=== PATIENT | male | born 1965 | race African-American/Black ===

== ENCOUNTER 2021-09-05 13:54 | Emergency (ER) | payer OTHER, SELFPAY ==
--- NOTE | ~2021-09-05 | XR_ITS ---
EXAMINATION: XR wrist RT min 3V DATE: 09/05/2021 14:18 INDICATION: Right wrist injury from a branch. TECHNIQUE: 4 views of right wrist were obtained. COMPARISON: Right hand radiographs 11/04/2018 FINDINGS: Bone alignment is normal. No fracture. There is mild osteoarthritis of first carpometacarpa l joint. IMPRESSION: 1. No fracture or radiopaque foreign body. Note that wood is not radiopaque. Reviewed, dictated and finalized at location A.
[2021-09-05 14:06] VITALS: BP 140/92; PULSE 80; RESP 16; TEMP 36.1; O2SAT 99
[2021-09-05] MEDS: ACETAMINOPHEN/CODEINE (*CRX) 300/30 MG TABLET 1 TAB PO (15:28)
[2021-09-05 15:45] VITALS: BP 113/90; PULSE 71; RESP 12; O2SAT 98
--- NOTE | 2021-09-05 15:58 | ED.GENADULT ---
HPI - General Adult General Chief complaint: Extremity Injury, Upper Stated complaint: right arm injury Time Seen by Provider: 09/05/21 14:10 Source: patient Mode of arrival: ambulatory Limitations: no limitations History of Present Illness HPI narrative: Patient presents with chief complaint of puncture wound to the right wrist that he sustained prior to arrival via a branch. Patient reports that he was cutting down a branch when the went into his wrist. Patient reports that the entire branch was removed. Patient reports swelling and pain to the area. He reports he has range of motion and sensation in his fingers however he does feel some tingling. He reports the area was bleeding but has since slowed down. He reports he is at his tenderness within the last year. Patient denies any other injuries or concerns. Related Data Allergies Allergy/AdvReac Type Severity Reaction Status Date / Time No Known Allergies Allergy Unverified 11/04/18 10:42 Review of Systems Review of Systems: CONSTITUTIONAL: Denies fever, chills, or sweats. EYES: Denies visual changes, redness, or discharge. ENT: Denies rhinorrhea, congestion, sore throat, or otalgia. CARDIOVASCULAR: Denies chest pain, palpitations, or edema. RESPIRATORY: Denies cough or dyspnea. GASTROINTESTINAL: Denies abdominal pain, nausea, vomiting, or diarrhea. GENITOURINARY: Denies dysuria or hematuria. SKIN: Reports puncture wound denies rash or itching. MUSCULOSKELETAL: Denies back pain, joint pain, or myalgia. NEUROLOGIC: Denies headache, numbness, dizziness, or weakness. PSYCHIATRIC: Denies anxiety or depression. Exam Narrative: GENERAL: Well-appearing, well-nourished, and in no acute distress. HEAD: Normocephalic, atraumatic. EYES: PERRLA and EOMI. NECK: Supple. No adenopathy or masses. Range of motion intact. CHEST: Clear to auscultation. No respiratory distress. No tachypnea EXTREMITIES: Swelling and edema noted to the right wrist. There is a puncture wound noted. No active bleeding. No obvious superficial foreign bodies. Strapper strength intact. Sensation intact. Cap refill intact. SKIN: Warm, dry, no rash. NEURO: No focal deficits. Alert and oriented x3. PSYCH: Normal mood and affect. Course Vital Signs Vital signs: Vital Signs Temperature 97 F L 09/05/21 14:06 Pulse Rate 80 09/05/21 14:06 Respiratory Rate 16 09/05/21 14:06 Blood Pressure 140/92 H 09/05/21 14:06 Pulse Oximetry 99 09/05/21 14:06 Temperature 97 F L 09/05/21 14:06 Pulse Rate 80 09/05/21 14:06 Respiratory Rate 16 09/05/21 14:06 Blood Pressure 140/92 H 09/05/21 14:06 Pulse Oximetry 99 09/05/21 14:06 Medical Decision Making MDM Narrative Medical decision making narrative: There is swelling and puncture wounds to the right wrist. There is no superficial noticeable foreign body detected. Patient reports that the entire bridge was removed to his knowledge. Patient reports he is up-to-date on tetanus. Patient placed on Keflex due to wound site. Patient instructed to wash area with antibacterial soap and apply antibacterial ointment. Patient given naproxen for inflammation and discomfort. Patient instructed to follow-up with his primary care for further evaluation and open wound site within 1 week. Patient instructed to return to emergency department if he develops any emergent symptoms. Vital Signs Vital Signs: Vital Signs Temperature 97 F L 09/05/21 14:06 Pulse Rate 80 09/05/21 14:06 Respiratory Rate 16 09/05/21 14:06 Blood Pressure 140/92 H 09/05/21 14:06 Pulse Oximetry 99 09/05/21 14:06 Temperature 97 F L 09/05/21 14:06 Pulse Rate 80 09/05/21 14:06 Respiratory Rate 16 09/05/21 14:06 Blood Pressure 140/92 H 09/05/21 14:06 Pulse Oximetry 99 09/05/21 14:06 Imaging Data Radiologist's impression: ITS Impressions Wrist X-Ray 09/05/21 14:23 IMPRESSION: 1. No fracture or radiopaque foreign body. Note that wood is not radi
== END 2021-09-05 15:46 | disposition home or self-care (01) ==
PROVIDERS: Emergency Provider Emergency Medicine
DX: S61.531A Puncture wound without foreign body of right wrist, initial encounter (principal); W22.8XXA Striking against or struck by other objects, initial encounter
CPT/HCPCS: 73110; 99283; A9270